=== PATIENT | female | born 1985 | race Caucasian/White ===

== ENCOUNTER → 2024-11-11 | Day surgery (SDC) | payer OTHER ==
[~2024-11-11] VITALS: Ht 162.6 cm; Wt 84.8 kg
[~2024-11-11] MED LIST: ALBU8.5H; GLYCOPYRROLATE INJ 0.2 MG/ML 2 ML VIAL As Ordered ONE; GNPTAB37 PO; LIDOCAINE 2% 100MG/5ML SDV (FOR ANES.) As Ordered ONE; LINZ290C PO; RIZA10TA2 PO; fentaNYL 100 MCG/2 ML INJECTION As Ordered ONE; propofoL 200 MG/20 ML VIAL As Ordered ONE
[2024-11-11 11:04] VITALS: TEMP 97.8
[2024-11-11 11:23] VITALS: BP 152/86; O2SAT 98
== END | disposition home or self-care (01) ==
LOC: M OPP 09:21
PROVIDERS: ATTEND Internal Medicine Gastroenterology
DX: K58.1 Irritable bowel syndrome with constipation (principal); K64.4 Residual hemorrhoidal skin tags; K64.8 Other hemorrhoids; R10.84 Generalized abdominal pain; G43.909 Migraine, unspecified, not intractable, without status migrainosus; I10 Essential (primary) hypertension; Z79.899 Other long term (current) drug therapy
CPT/HCPCS: 43235; 45378; J1596; J3010